=== PATIENT | female | born 1945 | race Caucasian/White ===

== ENCOUNTER 2018-02-13 13:15 | Emergency (ER) | END 2018-02-13 16:49 | disposition home or self-care (01) ==

== ENCOUNTER 2018-07-21 14:40 | Emergency (ER) | payer MEDICARE, OTHER ==
[~2018-07-21] VITALS: Ht 162.6 cm; Wt 52.7 kg
[~2018-07-21 14:40] MED LIST: ACID1TAB14 PO; AMIO200T4 PO; ATOR-2 PO; CARB1TAB34 PO; CARB1TAB42 PO; DOCU-159 PO; HYDR28.39 RC; MAGN400T28 PO; MELA3TAB17 PO; MIDO5TAB PO; PANT40TA3 PO; QUET25TA33 PO; SERT25TA83 PO
[2018-07-21 14:50] VITALS: Ht 162.6 cm; Wt 52.7 kg
[2018-07-21] MEDS ORDERED: ACET500C5 PO (17:11)
--- NOTE | 2018-07-21 17:18 | ERD ---
ER Documentation Chief Complaint Chief Complaint TRIP AND FALL 2 DAYS AGO; SMALL ABRASION TO LEFT ELBOW AND BUMP TO HEAD; HPI 72-year-old female presents referred by primary doctor after a trip and fall 2 days ago. She slipped on a wet floor in the elevator. She hit the right top of her head and sustained an abrasion on her left elbow. There is no history of loss of consciousness, vomiting, visual changes. She also has right shoulder pain. She has a history of chronic right shoulder pain due to fracture sustained boxing. She has multiple complaints. She states that she had bright red blood per rectum last week. She has a history of hemorrhoids she states. She has a history of Parkinson's disease and frequent dizziness low blood pressure. She denies chest pain, shortness of breath, fevers, urinary complaints, abdominal pain. She has mild neck pain as well. ROS All systems reviewed and are negative except as per history of present illness. Medications Home Meds Active Scripts Acetaminophen* (Tylophen*) 500 Mg Capsule, 1 CAP PO Q6H PRN for PAIN AND OR EL EVATED TEMP, #20 CAP Prov:FESTUS IRAHETA MD 07/21/18 Reported Medications Magnesium Oxide* (Magnesium Oxide*) 400 Mg Tablet, 400 MG PO BID, TAB 02/13/18 Carbidopa/Levodopa (Carbidopa-Levodopa 25-100 Tab) 1 Each Tablet, 2 EACH PO TID, TAB 8AM,NOON,6PM 02/13/18 Carbidopa/Levodopa (Carbidopa-Levo ER 25-100 Tab) 1 Each Tablet.er, 1 EACH PO QID, TAB 8AM,NOON,6PM,10PM 02/13/18 Hydrocortisone (PROCTOSOL-HC) 28.35 Gm Cream..g., 28.35 GM RC TID PRN for HEMORROID PAIN/ITCHING 02/13/18 Sertraline Hcl* (Sertraline Hcl*) 25 Mg Tablet, 75 MG PO DAILY, #30 TAB 02/13/18 Docusate Sodium* (Docusate Sodium*) 100 Mg Capsule, 100 MG PO BID, #60 CAP 02/13/18 Lactobacillus Acidoph/Bulgaricus* (Floranex*) 1 Each Tablet, 1 TAB.CHEW PO DAILY, TAB.CHEW 02/13/18 Melatonin (Melatonin) 3 Mg Tablet.sa, 3 MG PO HS, TAB.SA 02/13/18 Midodrine* (Midodrine*) 5 Mg Tablet, 5 MG PO BID, TAB 02/13/18 Pantoprazole* (Protonix*) 40 Mg Tablet.dr, 40 MG PO DAILY, TAB 02/13/18 Quetiapine Fumarate* (Quetiapine Fumarate*) 25 Mg Tablet, 12.5 MG PO HS, TAB 02/13/18 Atorvastatin* (Atorvastatin*) 80 Mg Tablet, 80 MG PO QHS, #30 TAB 02/13/18 Amiodarone Hcl* (Amiodarone Hcl*) 200 Mg Tablet, 200 MG PO DAILY, #30 TAB 02/13/18 Allergies Allergies: Coded Allergies: No Known Allergy (Unverified , 07/21/18) PMhx/Soc History of Surgery: No Anesthesia Reaction: No Hx Neurological Disorder: Yes (parkinson's) Hx Respiratory Disorders: No Hx Cardiac Disorders: No Hx Psychiatric Problems: No Hx Miscellaneous Medical Probl: No Hx Alcohol Use: No Hx Substance Use: No Hx Tobacco Use: No Physical Exam Vitals Vital Signs Date Temp Pulse Resp B/P (MAP) Pulse Ox O2 O2 Flow FiO2 Time Delivery Rate 07/21/18 98.8 68 18 109/57 100 14:50 (74) Physical Exam Const: No acute distress. Amatory with a walker at baseline. Head: Missing small hematoma in the right top of the head. Eyes: Normal Conjunctiva eyes Tim and extraocular movements intact. ENT: Normal External Ears, Nose and Mouth. Neck: Full range of motion. No meningismus.. Mild generalized cervical paraspinous muscle tenderness. No exquisite midline tenderness or deformities. Resp: Clear to auscultation bilaterally Cardio: Regular rate and rhythm, no murmurs Abd: Soft, non tender, non distended. Normal bowel sounds Skin: No petechiae or rashes Back: No midline or flank tenderness Ext: No cyanosis, or edema. Approximately 1 cm dry abrasion on the left elbow. No deformities, restricted range of motion weakness. Mild tenderness in the right proximal humerus without restricted range of motion or weakness. Neur: Awake and alert Psych: Normal Mood and Affect Result Diagram: 07/21/18 1637 07/21/18 1637 Results 24 hrs Laboratory Tests Test 07/21/18 16:27 07/21/18 16:37 Urine Color YELLOW Urine Clarity SLIGHTLY CLOUDY Urine pH 6.0 Urine Specific [place] 1.020 Urine Ketones TRACE mg/dL Urine Nitrite NEGATIVE mg/dL Urine Bilirubin NEGATIVE mg/dL Urine Urobilinogen NEGATIVE mg/dL Urine Leukocyte Esterase NEGATIVE Arturo/ul Urine Microscopic RBC 1 /HPF Urine Microscopic WBC 3 /HPF Urine Squamous Epithelial Cells FEW /HPF Urine Bacteria FEW /HPF Urine Mucus FEW /HPF Urine Hemoglobin NEGATIVE mg/dL Urine Glucose NEGATIVE mg/dL Urine Total Protein NEGATIVE mg/dl White Blood Count 6.3 10^3/ul Red Blood Count 3.22 10^6/ul Hemoglobin 9.8 g/dl Hematocrit 30.2 % Mean Corpuscular Volume 93.8 fl Mean Corpuscular Hemoglobin 30.4 pg Mean Corpuscular Hemoglobin Concent 32.5 g/dl Red Cell Distribution Width 14.5 % Platelet Count 253 10^3/UL Mean Platelet Volume 9.2 fl Immature Granulocytes % 0.200 % Neutrophils % 71.6 % Lymphocytes % 20.0 % Monocytes % 6.9 % Eosinophils % 1.0 % Basophils % 0.3 % Nucleated Red Blood Cells % 0.0 /100WBC Immature Granulocytes # 0.010 10^3/ul Neutrophils # 4.5 10^3/ul Lymphocytes # 1.3 10^3/ul Monocytes # 0.4 10^3/ul Eosinophils # 0.1 10^3/ul Basophils # 0.0 10^3/ul Nucleated Red Blood Cells # 0.0 10^3/ul Sodium Level 141 mmol/L Potassium Level 4.6 mmol/L Chloride Level 106 mmol/L Carbon Dioxide Level 28 mmol/L Anion Gap 7 Blood Urea Nitrogen 40 mg/dl Creatinine 1.52 mg/dl Est Glomerular Filtrat Rate mL/min mL/min Glucose Level 116 mg/dl Calcium Level 10.2 mg/dl Procedures/MDM Patient presents with multiple complaints most specifically headache and left elbow pain after mechanical fall [address] brain shows no acute abnormalities and limited 1 view left elbow x-ray shows no acute fracture dislocation. Patient has minimal tenderness in low suspicion for fracture. She has an abrasion which appears to be healing and is dry without bleeding or discharge. She has right shoulder pain with history of identified chronic fracture deformity without identified acute fracture. She is neurovascular intact. X-ray Elbow 1V Interpreted by me: Fat Pads: Normal Bones: No fracture Joints: No dislocation Foreign body: None [id number] 1 view left elbow x-ray X-ray Shoulder 3V Interpreted by me: Bones: Fracture deformity the right proximal humerus. Joints: No dislocation Foreign body: None. Impression-chronic fracture deformity right proximal humerus. EKG: Rate/Rhythm: Normal Sinus Rhythm. Rate equals 58 QRS, ST, T-waves: No changes consistent w/ acute ischemia Impression: No evidence of ischemia or arrhythmia, mild sinus bradycardia CBC shows anemia with out change from 6 months ago. CMP shows chronic renal insufficiency given that it is unchanged from 5 months ago. Urine is negative for signs of infection. Patient was noted to be amatory, talkative and pleasant throughout ER course. Patient presents with headache, left elbow abrasion due to fall 2 days ago. She had a history of one episode of bright red blood per rectum with a history of hemorrhoids. She states that she has had a colonoscopy within the last 5 years. She has no signs to suggest symptomatic anemia, acute bleeding, additional concerning signs or symptoms. We discharged home with recommendations for Tylenol and primary care follow-up and return precautions. The patient was stable with no new complaints during the ER course. Clinically, there is no current evidence to suggest meningitis, sepsis, acute abdomen, pneumonia, stroke, acute coronary syndrome, pulmonary embolism, aortic di ssection or any other emergent condition appearing to require further evaluation or hospitalization. Patient counseled regarding my diagnostic impression and care plan. Prior to discharge all questions answered. Pt agrees with treatment plan and understands strict return precautions. Pt is instructed to follow up with primary care provider within 24-48 hours. Precautionary instructions provided including instructions to return to the ER if not improving or for any worsening or changing symptoms or concerns. Disclaimer: Inadvertent spelling and grammatical errors are likely due to EHR/dictation software use and do not reflect on the overall quality of patient care. Also, please note that the electronic time recorded on this note does not necessarily reflect the actual time of the patient encounter. Departure Diagnosis: Primary Impression: Abrasion Additional Impressions: Head injury Encounter type: initial encounter Qualified Codes: S09.90XA - Unspecified injury of head, initial encounter Fall Encounter type: initial encounter Qualified Codes: W19.XXXA - Unspecified fall, initial encounter Condition: Stable Patient Instructions: Abrasion, Fall, Mechanical, HEAD INJURY, No Wake-Up (Adult) Additional Instructions: Examination showed no acute abnormalities. reCommend primary care follow-up. Recheck for vomiting, chest pain, shortness of breath, new worsening symptoms. Recommend follow-up with GI primary doctor for following of anemia and hemorrhoids. Anemia and renal insufficiency unchanged from previous visits. FESTUS IRAHETA MD July 21, 2018 17:18
[2018-07-21 19:00] VITALS: BP 126/78; PULSE 71; RESP 18
--- NOTE | 2018-07-22 14:28 | RADRPT ---
Vent Rate: 58 bpm RR Interval: 0 msec OK Interval: 114 msec QRS Duration: 80 msec QT Interval: 442 msec QTC Interval: 433 msec P-R-T [place]: 76 - 74 - 58 degrees Sinus bradycardia Otherwise normal ECG Electronically Signed By: [facility]
== END 2018-07-21 19:02 | disposition home or self-care (01) ==
LOC: FTE 14:40
DX: S50.312A Abrasion of left elbow, initial encounter (principal); G20 Parkinson's disease; S00.83XA Contusion of other part of head, initial encounter; R07.9 Chest pain, unspecified; W01.0XXA Fall on same level from slipping, tripping and stumbling without subsequent striking against object, initial encounter; Y92.9 Unspecified place or not applicable
CPT/HCPCS: 36415; 70450; 71045; 72125; 80048; 81001; 81003; 85025; 93005

== ENCOUNTER 2019-01-04 13:05 | Emergency (ER) | payer MEDICARE, OTHER ==
[~2019-01-04] VITALS: Ht 160 cm; Wt 55.0 kg
[~2019-01-04 13:05] MED LIST changes: +ACET500C5 PO; -MIDO5TAB PO; +MIDO5TAB4 PO; +NPH10OT LEFT EAR
[2019-01-04 13:36] VITALS: Ht 160 cm; Wt 55.0 kg
[2019-01-04 15:55] VITALS: BP 140/86; PULSE 79; RESP 20
== END 2019-01-04 15:55 | disposition home or self-care (01) ==
LOC: E/R 13:05
DX: R55 Syncope and collapse (principal); R42 Dizziness and giddiness; G20 Parkinson's disease
CPT/HCPCS: 80048; 84484; 85025; 93005